=== PATIENT | female | born 1955 | race Caucasian/White ===

== ENCOUNTER 2025-01-23 14:03 | Outpatient (REF) | payer MEDICARE, SELFPAY ==
[2025-01-25 14:01] LABS: Helicobacter pylori Ag, Feces Negative (Negative)
== END 2025-01-23 14:04 | disposition home or self-care (01) ==
LOC: NCHCN 14:03
PROVIDERS: PCP Internal Medicine; Visit Provider Internal Medicine
DX: R10.84 Generalized abdominal pain (principal)
CPT/HCPCS: 87338

== ENCOUNTER 2025-02-06 21:40 | Outpatient (REF) | payer MEDICARE, SELFPAY ==
[2025-02-06 21:00] LABS: Lipase 44 U/L (<78)
[2025-02-06 23:06] LABS: Vitamin D 25 Total 72 ng/mL (30-100)
== END 2025-02-06 21:41 | disposition home or self-care (01) ==
LOC: NCHCN 21:40
PROVIDERS: PCP Internal Medicine; Visit Provider Internal Medicine
DX: E55.9 Vitamin D deficiency, unspecified (principal); R10.13 Epigastric pain
CPT/HCPCS: 82306; 82784; 83516; 83690